=== PATIENT | female | born 1995 | race Caucasian/White ===

== ENCOUNTER 2017-01-17 20:49 | Emergency (ER) | payer BC, MEDICAID ==
[~2017-01-17] VITALS: Ht 162.6 cm; Wt 78.5 kg
[~2017-01-17 20:49] MED LIST: CEPH-443 PO
[2017-01-17 20:56] VITALS: Ht 162.6 cm; Wt 78.5 kg
[2017-01-17] MEDS ORDERED: morphine 4 MG/ML VIAL IV STA (22:55)
[2017-01-17] MEDS ORDERED: ONDANSETRON 4 MG INJ IV STA (22:55)
[2017-01-17] MEDS ORDERED: SOD CHLORIDE 0.9% 1,000 ML IV STA (22:55)
[2017-01-17 23:58] LABS: BASOPHILS % 0.3 % (0.0-2.0); EOSINOPHILS # 0.1 10^3/ul (0.0-0.5); EOSINOPHILS % 1.2 % (0.0-7.0); HEMATOCRIT 38.6 % (37.0-47.0); HEMOGLOBIN 12.6 g/dl (12.0-16.0); LYMPHOCYTES # 3.1 10^3/ul (0.8-2.9); MEAN CORPUSCULAR HEMOGLOBIN 29.8 pg (29.0-33.0); MEAN CORPUSCULAR HGB CONC 32.6 g/dl (32.0-37.0); MEAN CORPUSCULAR VOLUME 91.3 fl (72.0-104.0); MEAN PLATELET VOLUME 12.1 fl (7.4-10.4); MONOCYTE # 0.8 10^3/ul (0.3-0.9); MONOCYTES % 10.9 % (0.0-13.0); NEUTROPHIL # 3.7 10^3/ul (1.6-7.5); NEUTROPHILS % 47.5 % (30.0-74.0); PLATELET COUNT 247 10^3/UL (140-415); RED BLOOD COUNT 4.23 10^6/ul (4.20-5.40); WHITE BLOOD COUNT 7.7 10^3/ul (4.8-10.8)
[2017-01-18 00:17] LABS: ALBUMIN/GLOBULIN RATIO 1.08; BILIRUBIN,INDIRECT 0.1 mg/dl (0-1.1); BILIRUBIN,TOTAL 0.1 mg/dl (0.2-1.3); CALCIUM 9.3 mg/dl (8.4-10.2); CREATININE 0.69 mg/dl (0.44-1.00); POTASSIUM 3.6 mmol/L (3.5-5.1); TOTAL PROTEIN 7.7 g/dl (6.1-8.1)
--- NOTE | 2017-01-18 00:34 | ERD ---
ER Documentation Chief Complaint Date/Time DATE: 01/18/17 TIME: 00:31 Chief Complaint left abdominal pain x 3 days HPI 21-year-old female presents the emergency department for complaining of gradually worsening left lower quadrant abdominal pain 3 days. Patient states that the pain began while she was sitting at work and has since gradually worsened. She currently reports a constant 10 out of 10 pain which is worse with movement or pressure to the area. She is attempted to treat her symptoms with Tylenol at home with mild relief. She denies any Vaginal discharge, bleeding, dysuria, hematuria, bloody stool, constipation or diarrhea. She denies nausea or vomiting. She denies fever but reports intermittent chills. ROS All systems reviewed and are negative except as per history of present illness. Medications Home Meds Active Scripts Cephalexin* (Keflex*) 500 Mg Capsule, 500 MG PO QID for 5 Days, CAP Prov:ANDREY JOVEL PA-C 06/16/15 Allergies Allergies: Coded Allergies: No Known Allergy (Unverified , 01/17/17) PMhx/Soc Medical and Surgical Hx: pt denies Medical Hx, pt denies Surgical Hx History of Surgery: No Anesthesia Reaction: No Hx Neurological Disorder: No Hx Respiratory Disorders: No Hx Cardiac Disorders: No Hx Psychiatric Problems: No Hx Miscellaneous Medical Probl: No Hx Alcohol Use: No Hx Substance Use: No Hx Tobacco Use: No Smoking Status: Never smoker Physical Exam Vitals Vital Signs Date Time Temp Pulse Resp B/P Pulse Ox O2 Delivery O2 Flow Rate FiO2 01/17/17 20:56 98.9 81 20 137/78 97 Physical Exam Const: Well-developed, well-nourished, in mild distress Head: Atraumatic Eyes: Normal Conjunctiva ENT: Normal External Ears, Nose and Mouth. Neck: Full range of motion..~ No meningismus. Resp: Clear to auscultation bilaterally Cardio: Regular rate and rhythm, no murmurs Abd: Soft, non tender,Mild tenderness near the left lower abdomen. Normal bowel sounds Skin: No petechiae or rashes Back: No midline or flank tenderness Ext: No cyanosis, or edema Neur: Awake and alert Psych: Normal Mood and Affect Result Diagram: 01/17/17 231 01/17/17 2315 Results 24 hrs Laboratory Tests Test 01/17/17 23:15 White Blood Count 7.710^3/ul Red Blood Count 4.2310^6/ul Hemoglobin 12.6g/dl Hematocrit 38.6% Mean Corpuscular Volume 91.3fl Mean Corpuscular Hemoglobin 29.8pg Mean Corpuscular Hemoglobin Concent 32.6g/dl Red Cell Distribution Width 12.0% Platelet Count 30787^3/UL Mean Platelet Volume 12.1fl Neutrophils % 47.5% Lymphocytes % 40.0% Monocytes % 10.9% Eosinophils % 1.2% Basophils % 0.3% Nucleated Red Blood Cells % 0.0/100WBC Neutrophils # 3.710^3/ul Lymphocytes # 3.110^3/ul Monocytes # 0.810^3/ul Eosinophils # 0.110^3/ul Basophils # 0.010^3/ul Nucleated Red Blood Cells # 0.010^3/ul Urine Color YELLOW Urine Clarity SLIGHTLY CLOUDY Urine pH 7.0 Urine Specific G[place]y 1.018 Urine Ketones NEGATIVEmg/dL Urine Nitrite NEGATIVEmg/dL Urine Bilirubin NEGATIVEmg/dL Urine Urobilinogen NEGATIVEmg/dL Urine Leukocyte Esterase 3+Zaki/ul Urine Microscopic RBC 2/HPF Urine Microscopic WBC 7/HPF Urine Squamous Epithelial Cells FEW/HPF Urine Hemoglobin NEGATIVEmg/dL Urine Glucose NEGATIVEmg/dL Urine Total Protein NEGATIVEmg/dl Sodium Level 139mmol/L Potassium Level 3.6mmol/L Chloride Level 105mmol/L Carbon Dioxide Level 26mmol/L Anion Gap 12 Blood Urea Nitrogen 16mg/dl Creatinine 0.69mg/dl Glucose Level 95mg/dl Calcium Level 9.3mg/dl Total Bilirubin 0.1mg/dl Direct Bilirubin 0.00mg/dl Indirect Bilirubin 0.1mg/dl Aspartate Amino Transf (AST/SGOT) 29IU/L Alanine Aminotransferase (ALT/SGPT) 58IU/L Alkaline Phosphatase 70IU/L Total Protein 7.7g/dl Albumin 4.0g/dl Globulin 3.70g/dl Albumin/Globulin Ratio 1.08 Lipase 58U/L Current Medications Medications (Trade) Dose Ordered Sig/Deonte Route PRN Reason Start Time Stop Time Status Last Admin Dose Admin Sodium Chloride (NS) 1,000 ml @ 1,000 mls/hr Q1H STAT IV 01/17/17 22:55 01/17/17 23:54 DC 01/17/17 23:26 Morphine Sulfate (morphine) 4 mg ONCE STAT IV 01/17/17 22:55 01/17/17 23:00 DC 01/17/17 23:27 Ondansetron HCl (Zofran Inj) 4 mg ONCE STAT IV 01/17/17 22:55 01/17/17 23:00 DC 01/17/17 23:27 Procedures/MDM PROCEDURE: US Pelvis CLINICAL INDICATION: Pain. TECHNIQUE: Sonographic evaluation of the pelvis was performed utilizing both transabdominal and transvaginal technique. Images were reviewed on the high- resolution PACS workstation. COMPARISON: No prior studies are available for comparison. FINDINGS: The uterus is normal in size, echogenicity, and morphology. The uterus is 6.8 x 2.9 x 4.7 cm. The endometrium is thin and normal measuring 3.5 mm in diameter. The right ovary measures 3.4 x 2.7 x 3 cm. The left ovary measures 2 x 1 x 1.1 cm. There is a 1.4 x 1.8 cm simple cyst in the right ovary. Ovaries are otherwise normal in appearance.. Color doppler vascular flow is demonstrated to both ovaries. There are no adnexal masses. There is no free fluid in the pelvis. IMPRESSION: Simple right ovarian cyst. Otherwise negative examination. RPTAT: [facility]VK .Reji Davis MD, MD Date Time Electronically viewed and signed by .Reji Davis MD, MD on 01/18/2017 00:51 .K/ CC: RADHA HERNANDEZ PA-C This is a 21-year-old otherwise healthy female who presents to the emergency department for complaints of left lower quadrant abdominal pain 3 days. Upon arrival, patient well-appearing and nontoxic. Vital signs reviewed and all within normal limits. There was slight tenderness at the low left quadrant. Otherwise exam unremarkable. CBC showed no evidence of systemic infection or severe anemia. CMP showed no evidence of electrolyte abnormalities, severe acidosis, alkalosis , renal failure, or liver disease. Lipase showed no evidence of acute pancreatitis. UA with evidence of leukocyte esterase and bacteremia consistent with likely urinary tract infection. Urine test was negative. Given these findings, the patients presentation is most consistent with left lower abdominal pain due to urinary tract infection. At this time low suspicion for acute appendicitis however I had a discussion with the patient regarding strict return precautions. Patient to return for abdominal recheck if symptoms should persist over the next 8 hours. Low suspicion for diverticulitis, pancreatitis, cholecystitis, ectopic , tubo-ovarian abscess, or ovarian torsion. Patient's pain well controlled while in the emergency department. I will be prescribing her pain medicine as well as antibiotics. Based on patient's history of present illness and physical examination the decision was made to discharge. The patient was re-evaluated after ED treatment and stabilizing measures, and symptoms have improved. There is no evidence of life threatening injuries or illnesses at this time. On re-examination, patient resting in no distress, stable vital signs, reports feeling better and safe for discharge with outpatient follow up with PMD in 1-2 days. Patient given return precautions. Patient agrees with plan. Departure Diagnosis: Primary Impression: Abdominal pain Abdominal location: left lower quadrant Qualified Code: R10.32 - Left lower quadrant pain Additional Impression: UTI (urinary tract infection) Urinary tract infection type: acute cystitis Hematuria presence: without hematuria Qualified Code: N30.00 - Acute cystitis without hematuria RADHA HERNANDEZ PA-C Jan 18, 2017 00:34
[2017-01-18 00:37] LABS: ADD UMIC YES; UR ASCORBIC ACID NEGATIVE (NEGATIVE); UR BILIRUBIN (Dip) NEGATIVE (NEGATIVE); UR BLOOD (Dip) NEGATIVE (NEGATIVE); UR CLARITY SLIGHTLY CLOUDY (CLEAR); UR COLOR YELLOW (YELLOW); UR GLUCOSE (Dip) NEGATIVE (NEGATIVE); UR KETONES (Dip) NEGATIVE (NEGATIVE); UR LEUKOCYTE ESTERASE (Dip) 3+ Leu/ul (NEGATIVE); UR NITRITE (Dip) NEGATIVE (NEGATIVE); UR RBC 2 /HPF (0-5); UR SPECIFIC GRAVITY (Dip) 1.018 (1.003-1.030); UR SQUAMOUS EPITHELIAL CELL FEW /HPF (FEW); UR TOTAL PROTEIN (Dip) NEGATIVE (NEGATIVE); UR UROBILINOGEN (Dip) NEGATIVE (NEGATIVE)
--- NOTE | 2017-01-18 00:51 | RADRPT ---
PROCEDURE: US Pelvis CLINICAL INDICATION: Pain. TECHNIQUE: Sonographic evaluation of the pelvis was performed utilizing both transabdominal and tr ansvaginal technique. Images were reviewed on the high-resolution PACS workstation. COMPARISON: No prior studies are available for comparison. FINDINGS: The uterus is normal in size, echogenicity, and morphology. The uterus is 6.8 x 2.9 x 4.7 cm. The endometrium is thin and normal measuring 3.5 mm in diameter. The right ovary measures 3.4 x 2.7 x 3 cm. The left ovary measures 2 x 1 x 1.1 cm. There is a 1.4 x 1.8 cm simple cyst in the right ovary. Ovaries are otherwise normal in appearance.. Color doppler vascular flow is demonstrated to both ovaries. There are no adnexal masses. There is no free flui d in the pelvis. IMPRESSION: Simple right ovarian cyst. Otherwise negative examination. RPTAT: [facility]VK .Reji Davis MD, Date Time Electronically viewed and signed by .Reji Davis MD, on 01/18/2017 00:51 .K/
[2017-01-18] MEDS ORDERED: CEPH500C PO (01:02)
[2017-01-18] MEDS ORDERED: NAPR-260 PO (01:02)
[2017-01-18 01:17] VITALS: BP 115/66; PULSE 65; RESP 18; TEMP 97.9
== END 2017-01-18 01:19 | disposition home or self-care (01) ==
LOC: FTE 20:49
DX: N30.00 Acute cystitis without hematuria (principal); R10.2 Pelvic and perineal pain
CPT/HCPCS: 36415; 76830; 76856; 80053; 81001; 83690; 85025; 96374; 96375; J2270; J2405; J7030; Z7502